=== PATIENT | female | born 1955 | race Caucasian/White ===

== ENCOUNTER → 2023-12-16 12:21 | Outpatient (REF) | payer BC, SELFPAY | LOC: RAD 12:21 | PROVIDERS: ATTENDING PHYSICIAN Specialist; REFERRING PHYSICIAN Obstetrics & Gynecology | DX: K59.00 Constipation, unspecified (principal) | CPT/HCPCS: 74018 ==

== ENCOUNTER → 2023-12-31 10:43 | Outpatient (REF) | payer BC, SELFPAY ==
[2023-12-31 11:25] LABS: % Basophils 0.9 % (0-2); % Eosinophils 3.7 % (0-6); % Immature Granulocytes 0.5 % (0-0.5); % Lymphocytes 29.5 % (20.5-51.1); % Monocytes 8.6 % (1.7-9.3); % Neutrophils 56.8 % (42.2-75.2); Absolute Basophils 0.1 10^3/uL (0-0.2); Absolute Eosinophils 0.3 10^3/uL (0-0.7); Absolute Lymphocytes 2.3 10^3/uL (1.2-3.4); Absolute Monocytes 0.7 10^3/uL (0.1-0.6); Absolute Neutrophils 4.4 10^3/uL (1.4-6.5); Hematocrit 39.1 % (37.0-47.0); Hemoglobin 12.5 g/dL (12.0-16.0); Mean Corpuscular Hgb 30.3 pg (27.0-31.0); Mean Corpuscular Volume 94.7 fL (81.0-99.0); Mean Platelet Volume 9.3 fL (7.4-10.4); Nucleated Red Blood Cells % 0 %; Platelet Count 384 10^3/uL (130-400); Red Blood Cell Count 4.13 10^6/uL (4.20-5.40); Red Cell Dist. Width 12.6 % (11.5-14.5); White Blood Cell Count 7.8 10^3/uL (4.8-10.8)
[2023-12-31 12:05] LABS: IgG 646 mg/dl (700-1600)
== END ==
LOC: REG 10:43
PROVIDERS: ATTENDING PHYSICIAN Internal Medicine Hematology & Oncology; FAMILY PHYSICIAN Family Medicine
DX: D47.2 Monoclonal gammopathy (principal); D83.8 Other common variable immunodeficiencies; M81.0 Age-related osteoporosis without current pathological fracture; D80.1 Nonfamilial hypogammaglobulinemia
CPT/HCPCS: 36415; 82784; 85025

== ENCOUNTER → 2024-04-15 14:49 | Outpatient (REF) | payer BC, SELFPAY ==
[2024-04-15 15:36] LABS: % Basophils 0.7 % (0-2); % Eosinophils 2.5 % (0-6); % Immature Granulocytes 0.3 % (0-0.5); % Lymphocytes 29.1 % (20.5-51.1); % Neutrophils 57.4 % (42.2-75.2); Absolute Eosinophils 0.2 10^3/uL (0-0.7); Absolute Lymphocytes 1.8 10^3/uL (1.2-3.4); Absolute Monocytes 0.6 10^3/uL (0.1-0.6); Absolute Neutrophils 3.5 10^3/uL (1.4-6.5); Hematocrit 38.9 % (37.0-47.0); Hemoglobin 12.8 g/dL (12.0-16.0); Mean Corp Hgb Conc. 32.9 g/dL (33.0-37.0); Mean Corpuscular Hgb 30.5 pg (27.0-31.0); Mean Corpuscular Volume 92.6 fL (81.0-99.0); Mean Platelet Volume 9.7 fL (7.4-10.4); Nucleated Red Blood Cells % 0 %; Platelet Count 305 10^3/uL (130-400); Red Cell Dist. Width 12.8 % (11.5-14.5); White Blood Cell Count 6.1 10^3/uL (4.8-10.8)
[2024-04-15 16:36] LABS: Iron 121 ug/dl (37-170)
[2024-04-15 16:45] LABS: Percent Saturation 34 % (20-50); Total Iron Binding Capacity 347 ug/dl (265-497)
[2024-04-17 23:04] LABS: IgG 696 mg/dl (700-1600)
== END ==
LOC: REG 14:49
PROVIDERS: ATTENDING PHYSICIAN Internal Medicine Hematology & Oncology; FAMILY PHYSICIAN Family Medicine
DX: D47.2 Monoclonal gammopathy (principal); D83.8 Other common variable immunodeficiencies; M81.0 Age-related osteoporosis without current pathological fracture; D80.1 Nonfamilial hypogammaglobulinemia
CPT/HCPCS: 36415; 82728; 82784; 83540; 83550; 85025

== ENCOUNTER → 2024-06-01 11:02 | Outpatient (REF) | payer BC, SELFPAY | LOC: HWWDC 11:02 | PROVIDERS: ATTENDING PHYSICIAN Internal Medicine Hematology & Oncology; FAMILY PHYSICIAN Family Medicine; REFERRING PHYSICIAN Internal Medicine Endocrinology, Diabetes & Metabolism | DX: D47.2 Monoclonal gammopathy (principal); D83.8 Other common variable immunodeficiencies; M81.0 Age-related osteoporosis without current pathological fracture; R10.11 Right upper quadrant pain; Z12.31 Encounter for screening mammogram for malignant neoplasm of breast | CPT/HCPCS: 76700; 77063; 77067; 77080 ==

== ENCOUNTER → 2024-06-14 08:40 | Outpatient (REF) | payer BC, SELFPAY | LOC: WDC 08:40 | PROVIDERS: ATTENDING PHYSICIAN Family Medicine | DX: R92.8 Other abnormal and inconclusive findings on diagnostic imaging of breast (principal) | CPT/HCPCS: 77065 ==

== ENCOUNTER 2025-03-08 06:31 | Day surgery (SDC) | payer BC, SELFPAY | END 2025-03-08 12:47 | disposition home or self-care (01) | LOC: GI 06:31 | PROVIDERS: ATTENDING PHYSICIAN Specialist | DX: Z12.11 Encounter for screening for malignant neoplasm of colon (principal); D12.3 Benign neoplasm of transverse colon; D12.5 Benign neoplasm of sigmoid colon; Z86.0101 Personal history of adenomatous and serrated colon polyps; Z80.0 Family history of malignant neoplasm of digestive organs; K29.70 Gastritis, unspecified, without bleeding; K31.7 Polyp of stomach and duodenum; K31.89 Other diseases of stomach and duodenum; R10.13 Epigastric pain; R07.89 Other chest pain | CPT/HCPCS: 45385; 43251; 43239; 88305; 88342 ==